=== PATIENT | female | born 1940 | race Caucasian/White ===

== ENCOUNTER → 2018-11-28 10:16 | Outpatient (CLI) | payer MEDICARE, SELFPAY ==
[2018-11-23 09:49] VITALS: BMI 23.9
--- NOTE | 2018-11-24 15:56 | HP.PCM_ITS ---
Problem List (1) Abnormal mammogram of left breast Status: Acute History and Physical Date of Admission: 11/28/18 MR#: [id number] Acct: [id number] Name: JACK MORATAYA Rep #: [id number] : 1940 Provider: Rafi Stapleton MD Age/Sex: 78/F Location: [facility] Status: Signed Intake Vital Signs 11/23/18 Height 5 ft 9 in 11/23/18 Weight: 162 lb 11/23/18 Body Mass Index (BMI) 23.9 11/23/18 Blood Pressure 127/79 H 11/23/18 Blood Pressure Location Rt brachial 11/23/18 Blood Pressure Position Sitting 11/23/18 Respiratory Rate 14 11/23/18 Pulse Rate 58 L 11/23/18 Pulse Source Monitor 11/23/18 Temperature 98.3 F 11/23/18 Temperature Source Oral 11/23/18 Pulse Ox 100 11/23/18 Oxygen Delivery Method room air Intake Visit Reasons: Abnormal Mammo L Breast D[employer] Manufacturing Technologist Required: No Is patient in pain?: No Allergies No Known Allergies Allergy (Verified 11/23/18 09:50) Medications calcium carbonate-vitamin D3 600 mg (1,500 mg)-400 unit capsule cap PO cap 11/23/18 [History Confirmed 11/23/18] echinacea-solis seal roots 25 mg-112.5 mg tablet tab PO tab 11/23/18 [History Confirmed 11/23/18] lactobacillus combination no.9 4 billion cell capsule 4,000 mmu cells PO DAILY 11/23/18 [History Confirmed 11/23/18] letrozole 2.5 mg tablet 2.5 mg PO DAILY 11/23/18 [History Confirmed 11/23/18] multivitamin tablet 1 tab PO DAILY 11/23/18 [History Confirmed 11/23/18] zoledronic acid 4 mg/5 mL intravenous solution 4 mg .ROUTE Q4W ml 11/23/18 [History Confirmed 11/23/18] PFSH Medical History History of cancer metastatic to bone (Acute) Hx of breast cancer (Acute) Surgical History Hx of appendectomy (Acute) Hx of tubal ligation (Acute) History of right mastectomy (Acute) Hx of right breast biopsy (Acute) Hx of left breast biopsy (Acute) Family History Father Myocardial infarction Brother Cancer Skin Cancer Sister Thyroid disorder Social History Smoking Status: Never smoker second hand exposure: No alcohol intake: never substance use type: does not use caffeine: No what type of physical activity do you participate in: walking, aerobics frequency: daily HPI HPI HPI: JACK MORATAYA, is a 78 F who presents to the office today for HPI HPI Surgical H&P: Yes HPI: JACK MORATAYA, is a 78 F who presents to the office today for surgical consultation regarding an abnormal left mammogram. The patient's primary care physician Dr. Rafi Edwards. Patient's oncologist is Dr. Marty Brown. His referring surgeon is Dr. Pedro Soto. Very pleasant 78-year-old female. G4, . Menarche at age 15. First child was born when she was 21. She did breast-feed. September 24, 2013 she had a spiculated lesion in the mid right breast. Definitive surgery was performed by Dr. 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 3 axillary lymph nodes had metastatic disease and there was extensive extracapsular involvement. Stage IV PT 3 and 1AM1. She performed well with the surgical and medical treatment is currently on Femara and Zometa. She had routine left unilateral mammogram performed at the [facility] on October 27 with a follow-up exam on November 08 as well as a left breast ultrasound. The interpretation suggests architectural distortion left breast suspicious for malignancy stereotactic biopsy recommended. On further review previous films suggested distortion middle depth central to the nipple left breast only seen on the cc view. No significant calcifications. The left breast ultrasound did not demonstrate a focal lesion to correlate. I have had an opportunity to discuss her care with general surgeon Dr. Pedro Soto. Dr. Soto had already taken the opportunity to discuss the imaging findings with .. There is some concern that the current imaging findings may not suggest an actual change however radiology holds to their recommendation for biopsy ROS General General: Yes breast cancer; no weight change, appetite, fatigue, colon cancer or weakness HEENT HEENT: No difficulty swallowing, eye injury, eye surgery, swollen glands or hoarseness Endo Endocrine: No thyroid disease, diabetes mellitus, thyroid cancer, Hair loss, heat intolerance or cold intolerance Skin Skin: No rash or changing moles Breast Breast: Yes left breast lump and abnormal mammogram; no right breast lump, nipple discharge, breast pain, abnormal US or breast enlargement Musc Musculoskeletal: No back problems, arthritis, rheumatoid arthritis, gout or joint pain Cardio Cardiovascular: No murmur, pacemaker, heart disease, atrial fibrillation, high blood pressure, heart attack, heart stent, palpitations, shortness of breat with exertion or chest pain Psych Psychiatric: No depression, anxiety or hearing voices Resp Respiratory: No shortness of breath, No sleep apnea, No cough, No COPD, No asthma, No emphysema, No wheezing Gastro Gastrointestinal: No abdominal pain, No nausea or vomiting, No diarrhea, No constipation, No blood in stool, No acid reflux, No hemorrhoids, No ulcers, No gallbladder problem, No black,tarry stools Sridhar Hematologic: No blood thinners, No blood disorders, No bleeding, No anemia, No blood clots Neuro Neurologic: No system reviewed and no additional complaints, except as docu, No as per HPI, No abnormal walking, No abnormal hearing, No abnormal movements, No abnormal speech, No behavioral changes, No burning sensations, No confusion, No seizure-like activity, No unsteadiness, No dizziness, No localized weakness, No frequent falls, No headache(s), No lack of coordination, No loss of vision, No memory loss, No numbness, No other visual disturbances, No radiating pain, No restless legs, No sensory deficit, No fainting, No tingling, No tremor(s), No weakness, No other Exam Const General: cooperative, healthy appearing, comfortable, no acute distress Nutritional Appearance: average body habitus Orientation: alert, awake, oriented x3 HENMT Head: normal to inspection Eyes General: appearance normal, both eyes and all related structures Chest Breast Palpation: No nipple discharge Other: Right chest: Extraordinarily well-healed mastectomy site with no palpable masses. No axillary mass or adenopathy. No supraclavicular adenopathy Left breast: No focal mass. No nipple discharge. No axillary or clavicular adenopathy Resp Effort & Inspection: normal respiratory effort Auscultation: clear to auscultation bilaterally Cardio Rate: regular rate Rhythm: regular rhythm Heart Sounds: no murmurs GI Palpation: soft, no hepatosplenomegaly Extrem General: no calf tenderness bilaterally Assessment & Plan Problems 1. Abnormal mammogram of left breast R92.8 Plan 78-year-old female with previous history of stage IV right breast cancer. She has a vague abnormality identified on the left mammogram only seen on the CC view retroareolar mid depth. She has already had a previous left breast biopsy identifying a fibroadenoma 5 years ago but this is not the location of a concern currently. Ultrasound imaging does not correlate with the mammogram and as noted the mammogram only suggests an issue on cc. I would concur with Dr. Pedro Soto that I believe that this is a low suspicion area of concern. I have offered the patient a stereotactic needle core left breast biopsy based upon risk history. In detail with the patient's present I discussed the technique, benefit, risks, alternatives. No guarantees of success have been offered. If the lesion cannot be identified on stereotactic imaging then I would propose for the patient a left unilateral MRI. She has had an opportunity to ask and have questions answered. I very much appreciate the kind opportunity of assisting with surgical care and I appreciate communicating with Dr. Pedro Soto coordinating this effort. CC: Dr. Rafi Edwards and Dr. Pedro Stapleton M.D., F.A.C.S. Coding Level of Care Code Exp prob focused,strt fwd Diagnoses Abnormal mammogram of left breast R92.8 11/23/18 1402 <Electronically signed by Rafi Stapleton MD> Date Rafi Stapleton MD Cosigner Signature: Date (if applicable) CC: PEDRO SOTO; Rafi Edwards MD ~ I have re-examined the patient. There are no clinical changes since date of exam.
--- NOTE | 2018-11-28 | BRBX_PTH ---
PATIENT: JACK MORATAYA LOC: [facility] U#:[id number] AGE/SX: 84/F ROOM: RE11/28/[address]: Dr. Rafi Stapleton MD : 1940 BED: DIS: SPEC #: [id number] RECD: 11/28/18 11:21 STATUS: DREW MARSHALLKing #: [id number] CORY: 11/28/18 00:[address]: Rafi Stapleton DEPT: SURGICAL PATHOLOGY RECD BY: Fiona Garner ENTERED: 11/28/18 11:50 SP TYPE: BREAST BX OTHR DR: Dr. Rafi Edwards MD Tissues: Left breast, NOS Procedures: Surgery Specimen Level IV HEADER OPERATION: Left stereotactic breast biopsy PRE-OP DIAGNOSIS: Left breast density retroareolar mid depth TISSUE SUBMITTED: Left breast core tissue ISCHEMIC TIME: 1 minute FIXATION TIME: 7.5 hours MICROSCOPIC DIAGNOSIS Left breast density, retroareolar mid depth, stereotactic core biopsy: Fragments of fatty benign breast tissue with a minute fragment of fibroadenoma (0.2 cm in greatest dimension). Negative for atypia or malignancy. RACHEL:gerald 11/29/18 COMMENT Correlation with clinical, radiologic findings and appropriate follow up are necessary. MICROSCOPIC DESCRIPTION Slides are reviewed. GROSS DESCRIPTION Received is one container labeled with the patient's name and not further designated. The specimen consists of multiple elongated fragments of stoner-yellow fibroadipose tissue that in aggregate measure 5 x 3 x 0.3 cm. The entire specimen is submitted in two cassettes. / RACHEL:gerald 11/28/18 TC:1 CPT: 43644
--- NOTE | 2018-11-28 12:37 | PCM.OPRPT ---
Problem List (1) Abnormal mammogram of left breast Status: Acute Report of Operation Date of Procedure: 11/28/18 Pre-Operative Diagnosis: Vague density upper mid left breast Post-Operative Diagnosis: Same Surgery/Procedure Performed:: Stereotactic needle core biopsy upper mid left breast Description of Surgical Findings:: Timeout and informed consent was obtained. 78-year-old female taken the stereotactic unit placed on the table. The left breast was placed in the cc view. The vague density was identified. Stereotactic images were obtained. The densities appearance seemed to alter somewhat with a different angulations. A single target site was selected. Betadine prep was performed. 1% lidocaine was used as a local anesthetic. A total of 10 cc was used. A small stab incision was created. An 8 gauge resolved needle was advanced to prefire depth. Pre-and post fire films were obtained. Adequate localization was felt to been achieved. 6 cores were obtained. A mini marking clip was left in position. She tolerated the procedure well with minimal blood loss. Pressure was held for hemostasis. Steri-Strip Telfa OpSite dressing applied. The specimens was transmitted to formalin. Final pathology is pending. No apparent complication. Rafi Stapleton M.D., F.A.C.S. Type of Anesthesia:: Local
--- NOTE | 2018-11-28 12:40 | OP.PCM_ITS ---
Problem List (1) Abnormal mammogram of left breast Status: Acute Report of Operation Date of Procedure: 11/28/18 Pre-Operative Diagnosis: Vague density upper mid left breast Post-Operative Diagnosis: Same Surgery/Procedure Performed:: Stereotactic needle core biopsy upper mid left breast Description of Surgical Findings:: Timeout and informed consent was obtained. 78-year-old female taken the stereotactic unit placed on the table. The left breast was placed in the cc view. The vague density was identified. Stereotactic images were obtained. The densities appearance seemed to alter somewhat with a different angulations. A single target site was selected. Betadine prep was performed. 1% lidocaine was used as a local anesthetic. A total of 10 cc was used. A small stab inc ision was created. An 8 gauge resolved needle was advanced to prefire depth. Pre-and post fire films were obtained. Adequate localization was felt to been achieved. 6 cores were obtained. A mini marking clip was left in position. She tolerated the procedure well with minimal blood loss. Pressure was held for hemostasis. Steri-Strip Telfa OpSite dressing applied. The specimens was transmitted to formalin. Final pathology is pending. No apparent complication. Rafi Stapleton M.D., F.A.C.S. Type of Anesthesia:: Local
== END ==
PROVIDERS: Family Provider Family Medicine; PCP Family Medicine; Referring Provider Surgery; Visit Provider Surgery
DX: D24.2 Benign neoplasm of left breast (principal); R92.8 Other abnormal and inconclusive findings on diagnostic imaging of breast; Z85.3 Personal history of malignant neoplasm of breast; Z90.11 Acquired absence of right breast and nipple; Z85.830 Personal history of malignant neoplasm of bone; Z79.899 Other long term (current) drug therapy
CPT/HCPCS: 19081; 88305; J7050